=== PATIENT | female | born 2000 | race African-American/Black ===

== ENCOUNTER 2024-07-26 20:46 | Day surgery (SDC) | payer OTHER ==
[2024-07-26 21:01] VITALS: BMI 27.4
[2024-07-26] MEDS ORDERED: hydrALAZINE 20 MG/ML VIAL SLOW IVP PRN (21:02)
== END 2024-07-26 21:55 | disposition home or self-care (01) ==
LOC: CSHLD/OP 20:46
PROVIDERS: ATTEND Student in an Organized Health Care Education/Training Program
DX: O47.1 False labor at or after 37 completed weeks of gestation (principal); O36.8130 Decreased fetal movements, third trimester, not applicable or unspecified; Z79.899 Other long term (current) drug therapy; Z3A.38 38 weeks gestation of pregnancy
CPT/HCPCS: 99282

== ENCOUNTER 2024-08-03 21:13 | Inpatient (IN) | payer OTHER ==
[2024-08-03 22:12] VITALS: BMI 27.3
[2024-08-03] MEDS ORDERED: Ondansetron PF 4 MG/2 ML Vial IVP PRN (22:36)
[2024-08-03] MEDS ORDERED: Lidocaine 1% (PF) 30 ML VIAL SC PRN (22:36)
[2024-08-03] MEDS ORDERED: HYDROcodone/Acetaminophen 5/325 mg Tablet PO PRN (22:36)
[2024-08-03] MEDS ORDERED: Methylergonovine 0.2 MG/ML VIAL IM PRN (22:36)
[2024-08-03] MEDS ORDERED: Carboprost 250 MCG/ML AMP IM PRN (22:36)
[2024-08-03] MEDS ORDERED: Zolpidem Tartrate 5 MG TAB PO PRN (22:36)
[2024-08-03] MEDS ORDERED: Acetaminophen 500 MG TAB PO PRN (22:36)
[2024-08-03] MEDS ORDERED: Diphenoxylate HCl/Atropine Tablet PO PRN (22:36)
[2024-08-03] MEDS ORDERED: Promethazine HCl 25 MG/ML VIAL IM PRN (22:36)
[2024-08-03] MEDS ORDERED: fentaNYL 50 mcg/mL 1 mL Vial SLOW IVP PRN (22:36)
[2024-08-03] MEDS ORDERED: Ibuprofen 800 MG TAB PO PRN (22:36)
[2024-08-03] MEDS ORDERED: Misoprostol 200 MCG TAB PR PRN (22:36)
[2024-08-03] MEDS ORDERED: hydrALAZINE 20 MG/ML VIAL SLOW IVP PRN (22:36)
[2024-08-03] MEDS ORDERED: Lactated Ringer's 1,000 ML IV SCH (22:45)
[2024-08-03] MEDS ORDERED: Oxytocin 30 units/NS 500 ML 500 ML IV SCH ×2 (22:45)
[2024-08-03 23:07] LABS: Hematocrit 35.9 % (34.9-44.5); Hemoglobin 12.5 g/dL (12.0-15.5); Mean Corpuscular HGB CONC 34.8 g/dL (32.0-36.0); Mean Corpuscular Hemoglobin 30.3 pg (27.0-33.0); Mean Corpuscular Volume 87.1 fL (81.6-98.3); Mean Platelet Volume 11.2 fL (7.4-10.4); Platelet Count 206 10x3/uL (150-450); RBC Distribution Width 13.1 % (11.5-14.5); Red Blood Cell (RBC) Count 4.12 10x6/uL (3.90-5.03); White Blood Cell (WBC) Count 11.1 10x3/uL (3.5-10.5)
[2024-08-03 23:50] LABS: Syphilis Antibody Nonreactive (Nonreactive); Syphilis Antibody Index 0.06 S/CO (<1.00 Non-Reactive)
[2024-08-03] MEDS: Misoprostol 100 MCG TAB VAG SCH (23:52)
[2024-08-03 23:58] LABS: HBsAg Index 0.21 S/CO (0-0.99); Hep B Surf Ag - L&D Non-Reactive S/CO (NonReactive)
[2024-08-04] MEDS: fentaNYL/Ropivacaine Epidural 100 ML ONE (04:06)
[2024-08-04] MEDS ORDERED: Moisturizing Cream (Eucerin) 113 GM JAR TOP PRN (04:38)
[2024-08-04] MEDS ORDERED: Acetaminophen 325 MG TAB PO PRN (04:38)
[2024-08-04] MEDS ORDERED: Ondansetron PF 4 MG/2 ML Vial IVP PRN ×2 (04:38→14:55)
[2024-08-04] MEDS ORDERED: diphenhydrAMINE 50 MG/ML VIAL IVP PRN (04:38)
[2024-08-04] MEDS ORDERED: ePHEDrine Sulfate 50 MG/10 ML VIAL SLOW IVP PRN (04:38)
[2024-08-04] MEDS ORDERED: Naloxone HCl 0.4 mg/ml Vial IVP PRN ×2 (04:38)
[2024-08-04] MEDS ORDERED: Promethazine HCl 25 MG/ML VIAL IM PRN ×2 (04:38→14:55)
[2024-08-04] MEDS ORDERED: Lactated Ringer's 500 ML IV PRN (04:38)
[2024-08-04] MEDS ORDERED: fentaNYL 2 mcg/Ropivacaine 0.2% Epidural 100 ML CADD EPIDURAL SCH (04:45)
[2024-08-04] MEDS ORDERED: Communication Order-Pharmacy FS SCH (04:45)
[2024-08-04] MEDS ORDERED: Lanolin Ointment 7 GM TUBE TOP PRN (14:55)
[2024-08-04] MEDS ORDERED: diphenhydrAMINE 25 MG CAP PO PRN (14:55)
[2024-08-04] MEDS ORDERED: Preparation H Ointment 28 GM TUBE PR PRN (14:55)
[2024-08-04] MEDS ORDERED: HYDROcodone/Acetaminophen 5/325 mg Tablet PO PRN (14:55)
[2024-08-04] MEDS ORDERED: hydrALAZINE 20 MG/ML VIAL SLOW IVP PRN (14:55)
[2024-08-04] MEDS ORDERED: Bisacodyl 10 MG SUPP PR PRN (14:55)
[2024-08-04] MEDS ORDERED: Milk Of Magnesia 30 ML UDCUP PO PRN (14:55)
[2024-08-04] MEDS ORDERED: Benzocaine-Menthol 82.5 ML CAN TOP PRN (14:55)
[2024-08-04] MEDS: Ibuprofen 800 MG TAB PO SCH (16:18)
[2024-08-04] MEDS: HYDROcodone/Acetaminophen 5/325 mg Tablet PO PRN (16:18)
[2024-08-04] MEDS: Ferrous Sulfate 325 MG TAB PO SCH (16:19)
[2024-08-04] MEDS: Boostrix 0.5 ML (Tdap) VIAL (>/=7 yrs of age) IM ONE (16:19)
[2024-08-04] MEDS: Docusate 100 MG CAP PO SCH (21:22)
[2024-08-05] MEDS: Prenatal Vitamin 1 TAB PO SCH (08:08)
[2024-08-06 08:51] VITALS: BP 120/75; TEMP 98.4
== END 2024-08-06 11:50 | disposition home or self-care (01) | DRG 807 ==
LOC: CSHLD 21:13 → CSHPED 08-04 15:27
PROVIDERS: ADMIT Student in an Organized Health Care Education/Training Program; ATTEND Student in an Organized Health Care Education/Training Program
PROC: 10E0XZZ Delivery of Products of Conception, External Approach (ICD-10-PCS; principal; 2024-08-04)
PROC: 0KQM0ZZ Repair Perineum Muscle, Open Approach (ICD-10-PCS; 2024-08-04)
PROC: 3E0DXGC Introduction of Other Therapeutic Substance into Mouth and Pharynx, External Approach (ICD-10-PCS; 2024-08-04)
DX: O70.1 Second degree perineal laceration during delivery (principal); Z37.0 Single live birth; Z3A.39 39 weeks gestation of pregnancy
CPT/HCPCS: 36415; 51702; 85027; 86780; 86850; 86900; 86901; 87340